=== PATIENT | male | born 1965 | race Caucasian/White ===

== ENCOUNTER 2017-07-05 06:21 | Emergency (ER) | payer MEDICAID, SELFPAY ==
[~2017-07-05] VITALS: Ht 162.6 cm; Wt 75.7 kg
[2017-07-05 06:24] VITALS: BP 122/84
[2017-07-05] MEDS ORDERED: BENZOCAINE AEROSOL SPRAY 20%, 60ML TP ONE (07:00)
[2017-07-05 07:17] LABS: BASOPHILS # (AUTO) 0.02 x10^3/uL (0-0.1); BASOPHILS % (AUTO) 0 % (0-1); EOSINOPHILS # (AUTO) 0.08 x10^3/uL (0-0.4); EOSINOPHILS % (AUTO) 1 % (1-7); LYMPHOCYTES % (AUTO) 10 % (22-44); MD NO; MEAN CORPUSCULAR HEMOGLOBIN 30.8 pg (27.5-34.5); MEAN CORPUSCULAR VOLUME 90.6 fL (81-97); MEAN PLATELET VOLUME 7.9 fL (7.4-10.4); MONOCYTES # (AUTO) 0.64 x10^3/uL (0.2-0.8); MONOCYTES % (AUTO) 7 % (2-9); NEUTROPHILS # (AUTO) 8.23 x10^3/uL (1.8-6.8); NEUTROPHILS % (AUTO) 83 % (42-75); PLATELET COUNT 285 x10^3/uL (130-400); RED BLOOD COUNT 4.85 x10^6/uL (4.38-5.82); RED CELL DISTRIBUTION WIDTH 12.3 % (9.4-14.8)
[2017-07-05 07:21] LABS: INTERNATIONAL NORMALIZED RATIO 0.96 (0.93-1.1)
[2017-07-05] MEDS ORDERED: BENZOCAINE 20% SPRAY 0.5ML ONE (07:22)
[2017-07-05 07:25] LABS: ALANINE AMINOTRANSFERASE 22 U/L (12-78); ALBUMIN 3.8 g/dL (3.4-5.0); ANION GAP 6 mmol/L (5-15); CALCIUM 8.4 mg/dL (8.5-10.1); CHLORIDE 107 mmol/L (98-107); CREATININE 1.26 mg/dL (0.7-1.3)
[2017-07-05 07:27] LABS: ALKALINE PHOSPHATASE 60 U/L (45-117); BILIRUBIN,TOTAL 0.7 mg/dL (0.2-1.0); TOTAL PROTEIN 6.8 g/dL (6.4-8.2)
[2017-07-05 07:28] LABS: ACETAMINOPHEN < 2 mcg/mL (10-30); SALICYLATE LEVEL < 1.7 mg/dL (2.8-20.0)
[2017-07-05] MEDS ORDERED: BICILLIN-LA 1,200,000 UNITS/2 ML IM ONE (08:00)
[2017-07-05] MEDS ORDERED: ONDANSETRON ODT 4 MG ONE (08:29)
[2017-07-05] MEDS ORDERED: ONDANSETRON ODT 4 MG PO ONE (09:00)
== END 2017-07-05 09:05 | disposition home or self-care (01) ==
LOC: ED 08:59
DX: K04.7 Periapical abscess without sinus (principal); R79.1 Abnormal coagulation profile; Z79.899 Other long term (current) drug therapy
CPT/HCPCS: 36415; 41800; 80053; 80307; 80329; 85025; 85610; 85730; 96372; 99284; J0561; G0480

== ENCOUNTER 2017-10-30 18:30 | Emergency (ER) | payer MEDICAID ==
[~2017-10-30] VITALS: Ht 167.6 cm; Wt 73.7 kg
[2017-10-30 18:38] VITALS: BP 123/84
[2017-10-30] MEDS ORDERED: CEPHALEXIN 500 MG CAPSULE PO ONE (19:30)
[2017-10-30] MEDS ORDERED: SULFAMETH./TRIMETHOPRIM DS 800MG/160MG TABLET PO ONE (19:30)
[2017-10-30] MEDS ORDERED: CEPHALEXIN 500 MG CAPSULE ONE (19:34)
[2017-10-30] MEDS ORDERED: SULFAMETH./TRIMETHOPRIM DS 800MG/160MG TABLET ONE (19:34)
== END 2017-10-30 19:54 | disposition home or self-care (01) ==
LOC: ED 19:45
DX: L03.112 Cellulitis of left axilla (principal)
CPT/HCPCS: 99283

== ENCOUNTER 2018-01-29 21:29 | Emergency (ER) | payer MEDICAID ==
[~2018-01-29] VITALS: Ht 165.1 cm; Wt 73.6 kg
[2018-01-29] MEDS ORDERED: PROPARACAINE OPHTH 0.5%, 15ML ONE (21:36)
[2018-01-29] MEDS ORDERED: ERYTHROMYCIN OPHTH 0.5%, 1GM EACHEYE ONE (22:00)
== END 2018-01-29 22:50 | disposition home or self-care (01) ==
LOC: ED 22:10
DX: H10.023 Other mucopurulent conjunctivitis, bilateral (principal)
CPT/HCPCS: 99283

== ENCOUNTER 2018-01-31 16:07 | Emergency (ER) | payer SELFPAY ==
[~2018-01-31] VITALS: Ht 165.1 cm; Wt 70.0 kg
[2018-01-31] MEDS ORDERED: CEFTRIAXONE PMX 1GM/50ML 50 ML IVPB ONE (18:00)
[2018-01-31] MEDS ORDERED: SODIUM CHLORIDE FLUSH 10ML SYR IVF ONE (18:00)
[2018-01-31] MEDS ORDERED: CEFTRIAXONE PMX 1GM/50ML 0 ML ONE (18:49)
[2018-01-31 19:39] VITALS: BP 127/78
== END 2018-01-31 19:41 | disposition home or self-care (01) ==
LOC: ED 16:45
DX: H10.023 Other mucopurulent conjunctivitis, bilateral (principal)
CPT/HCPCS: 87070; 87205; 99284

== ENCOUNTER 2019-04-11 00:09 | Emergency (ER) | payer OTHER ==
[~2019-04-11] VITALS: Ht 162.6 cm; Wt 69.0 kg
[2019-04-11 00:10] VITALS: BP 130/85
[2019-04-11] MEDS ORDERED: KETOROLAC 30 MG/1 ML IM ONE (00:30)
[2019-04-11] MEDS ORDERED: ACETAMINOPHEN 500 MG TABLET PO ONE (00:30)
[2019-04-11] MEDS ORDERED: ACETAMINOPHEN 500 MG TABLET ONE (00:45)
[2019-04-11] MEDS ORDERED: KETOROLAC 30 MG/1 ML ONE (00:45)
--- NOTE | 2019-04-11 00:47 | NUR ---
PT TO US WITH TECH AT THIS TIME.
--- NOTE | 2019-04-11 01:32 | NUR ---
report of pt from [facility] and assuming care of pt at this time. pt provided water and instructed to void for ua when able. pt medicated per jul by van arauz.
[2019-04-11] MEDS ORDERED: DOXYCYCLINE 100MG TABLET PO ONE (02:00)
[2019-04-11] MEDS ORDERED: CEFTRIAXONE 250 MG IM ONE (02:00)
[2019-04-11] MEDS ORDERED: CEFTRIAXONE 1,000 MG ONE (02:13)
[2019-04-11] MEDS ORDERED: DOXYCYCLINE 100MG TABLET ONE (02:13)
[2019-04-11 02:23] LABS: CULTURE INDICATED? YES; MICROSCOPIC INDICATED
--- NOTE | 2019-04-11 02:31 | NUR ---
PT MEDICATED PER JUL. PT UA WALKED TO LAB. PT PROVIDED WITH A WARM BLANKET PER REQUEST.
--- NOTE | 2019-04-11 03:05 | NUR ---
PT D/C WITH D/C SUMMARY AND SCRIPTS. ALL QUESTIONS ANSWERED. PT DENIES ANY OTHER NEEDS PERTAINING TO THIS VISIT AND AMBULATES TO REGISTRATION DESK WITH STEADY GAIT FOR D/C HOME.
== END 2019-04-11 03:07 | disposition home or self-care (01) ==
LOC: ED 03:01
DX: N45.1 Epididymitis (principal); N45.2 Orchitis; Z90.49 Acquired absence of other specified parts of digestive tract
CPT/HCPCS: 76870; 81001; 87086; 87491; 87591; 96372; 99284; J0696; J1885